=== PATIENT | female | born 1940 | race African-American/Black ===

== ENCOUNTER 2016-12-01 05:41 | Observation (INO) | payer MEDICARE, OTHER ==
[~2016-12-01] VITALS: Ht 160 cm; Wt 83.4 kg
[2016-12-01] MEDS ORDERED: ASPIRIN 300 MG SUPP RECTAL ONE (07:25)
[2016-12-01] MEDS: ASPIRIN 81 MG CHEW TAB PO SCH (09:10)
[2016-12-01] MEDS ORDERED: ONDANSETRON 4 MG TAB PO PRN (09:10)
[2016-12-01] MEDS ORDERED: ACETAMINOPHEN 325 MG TAB PO PRN (09:10)
[2016-12-01] MEDS ORDERED: GADAVIST 7.5 ML SYR (HMH) IV ONE (09:11)
[2016-12-01] MEDS ORDERED: SODIUM CHLORIDE 0.9% 100 ML IV ONE (09:12)
[2016-12-01] MEDS ORDERED: CEFTRIAXONE 1 GM VIAL ONE (09:12)
[2016-12-01 11:15] VITALS: BP_SYST 122; BP_SYST 142; RESP 18; TEMP 98.2; Ht 160 cm; Wt 83.4 kg
[2016-12-01 13:15] VITALS: BP_SYST 100; RESP 18; TEMP 97.9
[2016-12-01] MEDS: LEVOTHYROXINE 0.025 MG TAB PO SCH (14:25)
[2016-12-01] MEDS: METOPROLOL TART 25 MG TAB PO SCH ×2 (14:25→20:55)
[2016-12-01] MEDS ORDERED: LACTULOSE SOLN 20GM/30ML UDC PO PRN (14:30)
[2016-12-01] MEDS ORDERED: LORAZEPAM 0.5 MG TAB PO PRN (14:30)
[2016-12-01] MEDS: OLANZAPINE 10 MG TAB PO SCH (14:37)
[2016-12-01 16:30] VITALS: BP_SYST 126; RESP 18; TEMP 98
[2016-12-01] MEDS ORDERED: MISSING DOSE XX ONE (17:30)
[2016-12-01 18:30] VITALS: BP_SYST 128; RESP 18; TEMP 98.2
[2016-12-01 19:00] VITALS: BP_SYST 106; RESP 18; TEMP 98.5
[2016-12-01] MEDS: AMITRIPTYLINE 50 MG TAB PO SCH (20:55)
[2016-12-01] MEDS ORDERED: OLANZAPINE 10 MG TAB PO SCH (21:00)
[2016-12-01 23:05] VITALS: BP_SYST 122; RESP 18; TEMP 98.7
[2016-12-02] VITALS (7 sets, daily range): BP systolic 113–136; RESP 18; TEMP 98.2–98.7
[2016-12-02] MEDS: LEVOTHYROXINE 0.025 MG TAB PO SCH (06:03)
[2016-12-02] MEDS: ASPIRIN 81 MG CHEW TAB PO SCH (08:30)
[2016-12-02] MEDS: OLANZAPINE 10 MG TAB PO SCH (08:30)
[2016-12-02] MEDS: METOPROLOL TART 25 MG TAB PO SCH ×2 (08:30→20:50)
[2016-12-02] MEDS ORDERED: BISACODYL 10 MG SUPP RECTAL PRN (08:35)
[2016-12-02] MEDS ORDERED: OMNIPAQUE 240 MG/ML, 50 ML PO SCH (09:20)
[2016-12-02] MEDS ORDERED: BARIUM 450 ML ORAL SUSP PO ONE ×2 (09:30)
[2016-12-02] MEDS: AMITRIPTYLINE 50 MG TAB PO SCH (20:51)
[2016-12-03 03:35] VITALS: BP_SYST 135; RESP 18; TEMP 97.3
[2016-12-03] MEDS: LEVOTHYROXINE 0.025 MG TAB PO SCH (06:12)
[2016-12-03 07:30] VITALS: BP_SYST 149; RESP 18; TEMP 97.5
[2016-12-03] MEDS: METOPROLOL TART 25 MG TAB PO SCH (09:02)
[2016-12-03] MEDS: ASPIRIN 81 MG CHEW TAB PO SCH (09:02)
[2016-12-03] MEDS: OLANZAPINE 10 MG TAB PO SCH (09:02)
[2016-12-03 09:43] VITALS: BP_SYST 149; RESP 18; TEMP 97.5
== END 2016-12-03 09:21 | disposition home or self-care (01) ==
LOC: ENRESERVDT → ENRESERVTM → ER 05:41 → ENPENDDIS 09:10 → EMR 09:10 → PCU 11:07
PROVIDERS: ADMIT Internal Medicine Nephrology; ATTEND Internal Medicine Nephrology
DX: G45.9 Transient cerebral ischemic attack, unspecified (principal); R07.9 Chest pain, unspecified; N20.0 Calculus of kidney; Z87.891 Personal history of nicotine dependence; E03.9 Hypothyroidism, unspecified; J44.9 Chronic obstructive pulmonary disease, unspecified; F41.9 Anxiety disorder, unspecified; F32.9 Major depressive disorder, single episode, unspecified; M81.0 Age-related osteoporosis without current pathological fracture; G89.4 Chronic pain syndrome; I12.9 Hypertensive chronic kidney disease with stage 1 through stage 4 chronic kidney disease, or unspecified chronic kidney disease; N18.3 Chronic kidney disease, stage 3 (moderate); Z79.899 Other long term (current) drug therapy
CPT/HCPCS: 36415; 70450; 70553; 71010; 74176; 80053; 81001; 82553; 82947; 84484; 85025; 85384; 85610; 85730; 87077; 87088; 87186; 92610; 93005; 93880; 96374; 97161; 97799; 99285; G0378; G8978; G8979; G8980; G8996; G8997; G8998; J0696